=== PATIENT | female | born 1975 | race Caucasian/White ===

== ENCOUNTER 2018-11-16 10:59 | Emergency (ER) | payer SELFPAY ==
[~2018-11-16] VITALS: Ht 162.6 cm; Wt 129.7 kg
--- NOTE | 2018-11-16 11:44 | Diagnostic Imaging Report ---
EXAMINATION: CXR 1 W - HOP INDICATION: Acute shortness of breath. COMPARISON: None FINDINGS: TUBES and LINES: None. LUNGS: Lungs are well inflated. Lungs are clear. There is no evidence of pneumonia or pulmonary edema. PLEURA: No pleural effusion or pneumothorax. HEART AND MEDIASTINUM: The cardiomediastinal silhouette is unremarkable. BONES AND SOFT TISSUES: No acute osseous lesion. Soft tissues are unremarkable. UPPER ABDOMEN: No free air under the diaphragm. IMPRESSION: No acute radiographic abnormality. Signed by: Dr. Juan Manuel Mahmood MD on 11/16/2018 11:41 AM
[2018-11-16 12:05] VITALS: BP 143/78
== END 2018-11-16 12:13 | disposition home or self-care (01) ==
LOC: FSED 10:59
DX: R07.89 Other chest pain (principal); S29.011A Strain of muscle and tendon of front wall of thorax, initial encounter; S29.012A Strain of muscle and tendon of back wall of thorax, initial encounter
CPT/HCPCS: 71045; 93005; 99283